=== PATIENT | male | born 1945 | race Caucasian/White ===

== ENCOUNTER 2017-07-23 16:36 | Emergency (ER) | payer MEDICARE ==
[2017-07-23] MEDS ORDERED: Aspirin Low Dose CHEW TAB* 81 MG PO ONE (17:32)
[2017-07-23 17:46] VITALS: BP 147/86
--- NOTE | 2017-07-29 13:56 | UC ---
Hoang Thompson SooYoung, scribed for JoshuaHilda MonacoDO on 07/23/17 at 1657 . Truncal Trauma HPI - HPI Summary HPI Summary: A 72 y/o M presents to [facility] with c/o constant chest pain s/p fall from 3 days ago. The pain worsened at approx noon today. Pt states he landed on the ground on the L-side of his chest, no pain immediate pain. Pain started 2 days later. Aggravating factors: movement, deep breaths. Alleviating factors: Alleve helped mildly, last taken at approx 1400. Pain rated as 8 out of 10, described as sharp with deep breaths and movement. Also constant dull pain 4/10. Associated sx: SOB only due to the CP with deep breaths. Denies n/v, dizziness, TAN, sore throat, ear ache. States feeling OK otherwise. - History Of Current Complaint Chief Complaint: UCTrauma Stated Complaint: FALL Time Seen by Provider: 07/23/17 16:48 Hx Obtained From: Patient, Medical Records Onset/Duration: Gradual Onset, Lasting Days, Still Present Onset Of Pain: Post Accident Severity Currently: Severe Pain Intensity: 8 Pain Scale Used: 0-10 Numeric Mechanism Of Injury: Fall From A Standing Position Aggravating Factor(s): Movement, Deep Breathing Alleviating factor(s): OTC Medication, Shallow Breathing Associated Signs And Symptoms: Positive: SOB, Chest Pain - Allergies/Home Medications Allergies/Adverse Reactions: Allergies Allergy/AdvReac Type Severity Reaction Status Date / Time Amoxicillin [From Augmentin] Allergy Unknown Verified 07/23/17 16:45 Reaction Details Clavulanic Acid Allergy Unknown Verified 07/23/17 16:45 [From Augmentin] Reaction Details Home Medications: Home Medications Aspirin [Aspirin 81 MG TAB] 81 mg PO 07/23/17 [History] Cyclosporine 0.05% OPHTH (NF) [Restasis 0.05% OPHTH] 0.05 % OP 07/23/17 [History ] Fluticasone NASAL * [Flonase *] 2 spray BOTH NARES DAILY 07/23/17 [History Confirmed 07/23/17] LevoCETirizine TAB (NF) [Xyzal TAB (NF)] 5 mg PO DAILY 07/23/17 [History Confirmed 07/23/17] Losartan TAB* [Cozaar TAB*] 25 mg PO DAILY 07/23/17 [History Confirmed 07/23/17] Metoprolol Succinate [Toprol Xl] 25 mg PO 07/23/17 [History] Mometasone/Formoter 200/5 MDI* [Dulera 200/5 MDI*] 2 puff INH BID 07/23/17 [ History Confirmed 07/23/17] Multiple Vitamin [Multivitamins] 1 cap PO 07/23/17 [History] Naproxen Sodium [Naproxen Sodium 220 mg cap] 220 mg PO 07/23/17 [History] [place]-3 Fatty Acids [Fish Oil] 1,000 mg PO 07/23/17 [History] Pravastatin (NF) [Pravachol (NF)] 40 mg PO 1700 07/23/17 [History Confirmed ] PMH/Surg Hx/FS Hx/Imm Hx Previously Healthy: No Cardiovascular History: Hypertension, Other Other Cardiovascular History: high cholesterol; peripheral vascular dz Neurological History: TIA, Other Other Neurological History: bilat carotid endarterectomies - Surgical History Surgical History: Yes Surgery Procedure, Year, and Place: sinusitis, knee implant, shoulder, foot - Family History Known Family History: Positive: Unknown - pt unsure, Cardiac Disease - possibly father, mother - Social History Occupation: Retired Lives: With Family Alcohol Use: None Substance Use Type: None Smoking Status (MU): Never Smoked Tobacco Review of Systems Constitutional: Negative Skin: Negative Eyes: Negative ENT: Negative Respiratory: Shortness Of Breath Cardiovascular: Negative, Chest Pain Gastrointestinal: Negative Genitourinary: Negative Motor: Negative Neurovascular: Negative Musculoskeletal: Negative Neurological: Negative Psychological: Negative All Other Systems Reviewed And Are Negative: Yes Physical Exam Triage Information Reviewed: Yes Appearance: Well-Appearing, No Pain Distress, Well-Nourished Vital Signs: Initial Vital Signs Temp 97.9 F 07/23/17 16:41 Pulse 81 07/23/17 16:41 Resp 18 07/23/17 16:41 BP 145/101 07/23/17 16:41 Pulse Ox 98 07/23/17 16:41 Vital Signs Reviewed: Yes Eyes: Positive: Conjunctiva Clear. Negative: Discharge ENT: Positive: Hearing grossly normal, TMs normal. Negative: Muffled/hoarse voice Neck: Positive: Supple, Nontender Respiratory: Positive: Lungs clear, Normal breath sounds, No respiratory distress, No accessory muscle use Cardiovascular: Positive: RRR, No Murmur Musculoskeletal: Positive: Other: - some tenderness with extensive palpation of costal-sternal border, none of which was reproducing the pain he was describing ; mild tremor Neurological: Positive: Alert, Muscle Tone Normal Psychological Exam: Normal Psychological: Positive: Age Appropriate Behavior Skin Exam: Normal, Other - warm, dry, nml color Diagnostics - EKG Cardiac Rate: NL - 75bpm Cardiac Rhythm: Sinus: Normal - LVH, Q-waves in avF, III; old inferior infarct Re-Evaluation - Re-Evaluation 1 Re-Evaluation Time: 17:25 Change: Unchanged Comment: Discussing EKG results with pt. Discussed with pt need for further evaluation of CP at ED. Pt voiced understanding, agrees, will go by ambulance. Pt also states he used to take a daily aspirin but stopped. Takes Alleve daily for shoulder pain. Truncal Trauma Course/Dx - Course Course Of Treatment: Pt medications reviewed this visit. Elevated BP but has current hypertension diagnosis. - Differential Dx/Diagnosis Differential Diagnosis/HQI/PQRI: Chest Wall Contusion, Rib Fracture Provider Diagnoses: 1. cp r/o acs. 2. chest wall truama. 3.Blood pressure in poor control - Physician Notification/Consults Discussed Patient Care With: Mary Allen - ED physician Time Discussed With Above Provider: 17:30 Instructed by Provider To: Transfer - send to [facility] Discharge - Discharge Plan Condition: Stable Disposition: TRANS HIGHER LVL OF CARE FAC Discharge Disposition Comment: [facility] by ambulance Referrals: [facility] PHYSICIAN REFERRAL [Outside] Additional Instructions: Return to Urgent Care if you have any new or worsening. You should establish with a private physician for follow-up care. If you are unable to get a timely appointment, or if you are worsening, call us or return for re-evaluation. An additional resource available to assist in finding the appropriate physician for your health care needs is the Physician Referral Center. You may contact them by calling [phone]. The documentation as recorded by the Hoang chapa SooYoung accurately reflects the service I personally performed and the decisions made by me, Hilda Lewis DO.
== END 2017-07-23 17:55 | disposition short-term general hospital (02) ==
LOC: UCEAST 16:36
DX: R07.89 Other chest pain (principal); S29.9XXA Unspecified injury of thorax, initial encounter; W19.XXXA Unspecified fall, initial encounter; Y93.9 Activity, unspecified; Y92.9 Unspecified place or not applicable; Z88.1 Allergy status to other antibiotic agents; I10 Essential (primary) hypertension; I73.9 Peripheral vascular disease, unspecified; E78.00 Pure hypercholesterolemia, unspecified; I38 Endocarditis, valve unspecified; Z86.73 Personal history of transient ischemic attack (TIA), and cerebral infarction without residual deficits
CPT/HCPCS: 93005; 99213; A9270-GY; G0463

== ENCOUNTER 2017-07-23 18:23 | Emergency (ER) | payer MEDICARE ==
[2017-07-23] MEDS ORDERED: NS 0.9% 1000 ML* 1,000 ML IV ONE (18:32)
--- NOTE | 2017-07-23 19:02 | RAD ---
HISTORY: Chest pain COMPARISONS: August 19, 2008 VIEWS:1: Single frontal portable view of the chest at 6:48 PM FINDINGS: LINES AND TUBES: None. CARDIOMEDIASTINAL SILHOUETTE: The cardiomediastinal silhouette is normal for portable technique. PLEURA: The costophrenic angles are sharp. No pleural abnormalities are noted. LUNG PARENCHYMA: The lungs are clear. ABDOMEN: The upper abdomen is clear. There is no subphrenic gas. BONES AND SOFT TISSUES: No bone or soft tissue abnormalities are noted. IMPRESSION: NO ACTIVE CARDIOPULMONARY DISEASE.
[2017-07-23 19:10] LABS: Hematocrit 41 % (42-52); Mean Corpuscular HGB Conc 34 g/dl (31-36); Mean Corpuscular Hemoglobin 31 pg (27-31); Mean Corpuscular Volume 91 fL (80-94); Mean Platelet Volume 8 um3 (7.4-10.4); Red Blood Count 4.53 10^6/ul (4.0-5.4); Red Cell Distribution Width 14 % (10.5-15); White Blood Count 8.6 10^3/ul (3.5-10.8)
[2017-07-23 19:25] LABS: Albumin 4.3 g/dL (3.2-5.2); BUN/Creatinine Ratio 29.8 (8-20); Calcium 9.3 mg/dL (8.6-10.3); EGFR African American 114.9 (>60); EGFR Non-African American 89.3 (>60); Globulin 2.2 g/dL (2-4); Magnesium 1.9 mg/dL (1.9-2.7); Total Bilirubin 0.6 mg/dL (0.2-1.0); Total Protein 6.5 g/dL (6.4-8.9)
[2017-07-23 19:56] LABS: TSH (Thyroid Stimulating Horm) 1.72 mcIU/mL (0.34-5.60)
[2017-07-23] MEDS ORDERED: Iohexol 350* (CONTRAST) 500 ML MDV IV ONE (19:59)
--- NOTE | 2017-07-23 21:01 | RAD ---
HISTORY: Chest pain radiating to back, subacute trauma COMPARISONS: None TECHNIQUE: Multiple contiguous axial CT scans of the chest were obtained after the administration of nonionic intravenous contrast, timed to the pulmonary arterial phase of contrast enhancement.. Coronal and sagittal multiplanar reformations are also submitted for review. FINDINGS: Evaluation somewhat limited by suboptimal contrast opacification. Attenuation of the aorta and main pulmonary artery is between 220 mL of sodium its. This is considered borderline but diagnostic quality. NECK AND THYROID: The lower neck and thyroid are unremarkable. CHEST WALL: There is no lower cervical, axillary, or supraclavicular lymphadenopathy by size criteria. There is minimal bilateral gynecomastia. HEART AND PERICARDIUM: The heart is unremarkable. AORTA AND PULMONARY VASCULATURE: There is no pulmonary arterial filling defect to suggest pulmonary embolism. There is no linear filling defect within the aorta to suggest aortic dissection. There is mild calcified atherosclerotic plaque of the aorta. MEDIASTINUM: There are subcentimeter short axis mediastinal lymph nodes without lymphadenopathy by size criteria. RAUL: There are subcentimeter short axis hilar lymph nodes without lymphadenopathy by size criteria. AIRWAY AND ESOPHAGUS: The airway is unremarkable, without endobronchial filling defect. The esophagus is grossly normal. LUNG PARENCHYMA: There is minimal dependent atelectasis of the lung bases. PLEURA: No pleural abnormalities are noted. UPPER ABDOMEN: The upper abdomen is unremarkable. BONES AND SOFT TISSUES: Mild degenerative changes are noted OTHER: None. IMPRESSION: 1. NO PULMONARY ARTERIAL FILLING DEFECT TO SUGGEST PULMONARY EMBOLISM. 2. NO AORTIC INTIMAL FLAP TO SUGGEST DISSECTION. NO ANEURYSMAL DILATATION.
--- NOTE | 2017-07-23 21:26 | ED ---
Sparkle Thompson Edward, scribed for Mary Allen MD on 07/23/17 at 1838 . HPI Chest Pain - HPI Summary HPI Summary: 72 y/o male presents to ED c/o sudden onset CP located in the L lateral region starting at around noon today. The patient was waxing his car when the pain started. The pain is aggravated with deep breaths, coughing, and sitting up. There is a region tender to the touch at one spot in the L lateral region. The pain radiates to the back. The pt fell at 07/21/17 at 08:00 am. During the fall , the pt's right foot caught and the pt fell on his L shoulder and L knee onto gravel. PMHx HTN, HLD. No previous RI's. - History of Current Complaint Time Seen by Provider: 07/23/17 18:32 Hx Obtained From: Patient, Family/Teletype Adjuster - present in room Onset/Duration: Started Hours Ago - Noon today Time of Onset: 12:00 Timing: Constant Initial Severity: Moderate Current Severity: Moderate Pain Intensity: 8 Pain Scale Used: 0-10 Numeric Chest Pain Location: Left Lateral Chest Pain Radiates: Yes Chest Pain Radiates To:: Back Character: Dull/Aching Aggravating Factor(s): Position - Sitting up, Deep Breaths, Other: - Tender to touch at one spot, cough Alleviating Factor(s): Nothing Associated Signs and Symptoms: Positive: Chest Pain, Back Pain. Negative: Diaphoresis, Nausea, Abdominal Pain, Vomiting - Risk Factors TAD Risk Factors: Hypertension AMI/ACS Risk Factors: Hypertension, Dyslipidemia - Allergy/Home Medications Allergies/Adverse Reactions: Allergies Allergy/AdvReac Type Severity Reaction Status Date / Time Amoxicillin [From Augmentin] Allergy Unknown Verified 07/23/17 16:45 Reaction Details Clavulanic Acid Allergy Unknown Verified 07/23/17 16:45 [From Augmentin] Reaction Details PMH/Surg Hx/FS Hx/Imm Hx Previously Healthy: No Endocrine/Hematology History: Reports: Other Endocrine/Hematological Disorders - HLD Cardiovascular History: Reports: Hx Hypercholesterolemia, Hx Hypertension - Surgical History Surgery Procedure, Year, and Place: sinusitis, knee implant, shoulder, foot Infectious Disease History: Denies: Traveled Outside the [place] in Last 30 Days - Family History Known Family History: Positive: Cardiac Disease - Father - CHF. Mother- heart disease, Respiratory Disease - Father - tuberculosis, Other - Mother - stroke. Father, brother and sister of muscular dystrophy - Social History Lives: With Family Alcohol Use: None Hx Substance Use: No Substance Use Type: Reports: None Hx Tobacco Use: No Smoking Status (MU): Never Smoked Tobacco Review of Systems Constitutional: Negative Negative: Skin Diaphoresis Eyes: Negative ENT: Negative Positive: Chest Pain Respiratory: Negative Gastrointestinal: Negative Negative: Abdominal Pain, Vomiting, Nausea Genitourinary: Negative Musculoskeletal: Negative Skin: Negative Neurological: Negative Psychological: Normal All Other Systems Reviewed And Are Negative: Yes Physical Exam Triage Information Reviewed: Yes Vital Signs On Initial Exam: Initial Vitals Temp Pulse Resp BP Pulse Ox 99.4 F 77 18 157/77 96 07/23/17 18:42 07/23/17 18:42 07/23/17 18:42 07/23/17 18:42 07/23/17 18:42 Vital Signs Reviewed: Yes Appearance: Positive: Well-Appearing, Well-Nourished, Pain Distress Skin: Positive: Warm, Skin Color Reflects Adequate Perfusion, Other - No bruising to left ant chest Head/Face: Positive: Normal Head/Face Inspection Eyes: Positive: Conjunctiva Clear ENT: Positive: Normal ENT inspection Neck: Positive: Supple Respiratory/Lung Sounds: Positive: Clear to Auscultation, Breath Sounds Present. Negative: Other - No crepitus, no wheezing, no bony tenderness Cardiovascular: Positive: RRR, Pulses are Symmetrical in both Upper and Lower Extremities, Other - Brisk capillary refill Abdomen Description: Positive: Nontender, No Organomegaly, Soft Bowel Sounds: Positive: Present Musculoskeletal: Positive: Pain @ - Point tenderness @ 3rd intercostal space. Negative: Other - No bony tenderness of ribs, no calf tenderness, no edema Neurological: Positive: Sensory/Motor Intact, Alert, Oriented to Person Place, Time, Facial Symmetry, Speech Normal Psychiatric: Positive: Normal Diagnostics - Vital Signs Vital Signs Temp Pulse Resp BP Pulse Ox 07/23/17 20:00 71 22 95 07/23/17 19:30 75 23 134/82 95 07/23/17 19:13 77 24 139/78 95 07/23/17 19:00 80 20 146/103 96 07/23/17 18:44 76 20 96 07/23/17 18:42 99.4 F 77 18 157/77 96 - Laboratory Lab Results: Lab Results 07/23/17 07/23/17 07/23/17 Range/Units 19:00 19:00 19:00 WBC 8.6 (3.5-10.8) 10^3/ul RBC 4.53 (4.0-5.4) 10^6/ul Hgb 14.0 (14.0-18.0) g/dl Hct 41 L (42-52) % MCV 91 (80-94) fL MCH 31 (27-31) pg MCHC 34 (31-36) g/dl RDW 14 (10.5-15) % Plt Count 112 L (150-450) 10^3/ul MPV 8 (7.4-10.4) um3 Neut % (Auto) 43.2 (38-83) % Lymph % (Auto) 47.4 H (25-47) % Ber[place] % (Auto) 8.2 (1-9) % Eos % (Auto) 0.7 (0-6) % Baso % (Auto) 0.5 (0-2) % Absolute Neuts (auto) 3.7 (1.5-7.7) 10^3/ul Absolute Lymphs (auto) 4.1 (1.0-4.8) 10^3/ul Absolute Monos (auto) 0.7 (0-0.8) 10^3/ul Absolute Eos (auto) 0.1 (0-0.6) 10^3/ul Absolute Basos (auto) 0 (0-0.2) 10^3/ul Absolute Nucleated RBC 0.01 10^3/ul Nucleated RBC % 0.1 INR (Anticoag Therapy) 0.94 (0.89-1.11) APTT 26.8 (26.0-36.3) seconds D-Dimer, Quantitative < 200 (Less Than 230) ng/mL Sodium 139 (133-145) mmol/L Potassium 4.0 (3.5-5.0) mmol/L Chloride 106 (101-111) mmol/L Carbon Dioxide 28 (22-32) mmol/L Anion Gap 5 (2-11) mmol/L BUN 25 H (6-24) mg/dL Creatinine 0.84 (0.67-1.17) mg/dL Est GFR ( Amer) 114.9 (>60) Est GFR (Non-Af Amer) 89.3 (>60) BUN/Creatinine Ratio 29.8 H (8-20) Glucose 101 H (70-100) mg/dL Lactic Acid (0.5-2.0) mmol/L Calcium 9.3 (8.6-10.3) mg/dL Magnesium 1.9 (1.9-2.7) mg/dL Total Bilirubin 0.60 (0.2-1.0) mg/dL AST 19 (13-39) U/L ALT 14 (7-52) U/L Alkaline Phosphatase 42 (34-104) U/L Total Creatine Kinase 94 (10-223) U/L CK-MB (CK-2) 3.0 (0.6-6.3) ng/mL Troponin I 0.00 (<0.04) ng/mL B-Natriuretic Peptide ( - 100) pg/mL Total Protein 6.5 (6.4-8.9) g/dL Albumin 4.3 (3.2-5.2) g/dL Globulin 2.2 (2-4) g/dL Albumin/Globulin Ratio 2.0 (1-3) TSH 1.72 (0.34-5.60) mcIU/mL 07/23/17 07/23/17 Range/Units 19:00 19:00 WBC (3.5-10.8) 10^3/ul RBC (4.0-5.4) 10^6/ul Hgb (14.0-18.0) g/dl Hct (42-52) % MCV (80-94) fL MCH (27-31) pg MCHC (31-36) g/dl RDW (10.5-15) % Plt Count (150-450) 10^3/ul MPV (7.4-10.4) um3 Neut % (Auto) (38-83) % Lymph % (Auto) (25-47) % Berks % (Auto) (1-9) % Eos % (Auto) (0-6) % Baso % (Auto) (0-2) % Absolute Neuts (auto) (1.5-7.7) 10^3/ul Absolute Lymphs (auto) (1.0-4.8) 10^3/ul Absolute Monos (auto) (0-0.8) 10^3/ul Absolute Eos (auto) (0-0.6) 10^3/ul Absolute Basos (auto) (0-0.2) 10^3/ul Absolute Nucleated RBC 10^3/ul Nucleated RBC % INR (Anticoag Therapy) (0.89-1.11) APTT (26.0-36.3) seconds D-Dimer, Quantitative (Less Than 230) ng/mL Sodium (133-145) mmol/L Potassium (3.5-5.0) mmol/L Chloride (101-111) mmol/L Carbon Dioxide (22-32) mmol/L Anion Gap (2-11) mmol/L BUN (6-24) mg/dL Creatinine (0.67-1.17) mg/dL Est GFR ( Amer) (>60) Est GFR (Non-Af Amer) (>60) BUN/Creatinine Ratio (8-20) Glucose (70-100) mg/dL Lactic Acid 0.6 (0.5-2.0) mmol/L Calcium (8.6-10.3) mg/dL Magnesium (1.9-2.7) mg/dL Total Bilirubin (0.2-1.0) mg/dL AST (13-39) U/L ALT (7-52) U/L Alkaline Phosphatase (34-104) U/L Total Creatine Kinase (10-223) U/L CK-MB (CK-2) (0.6-6.3) ng/mL Troponin I (<0.04) ng/mL B-Natriuretic Peptide 44 ( - 100) pg/mL Total Protein (6.4-8.9) g/dL Albumin (3.2-5.2) g/dL Globulin (2-4) g/dL Albumin/Globulin Ratio (1-3) TSH (0.34-5.60) mcIU/mL Result Diagrams: 07/23/17 19:00 07/23/17 19:00 Lab Statement: Any lab studies that have been ordered have been reviewed, and results considered in the medical decision making process. - Radiology CXR Xray Interpretation: No Acute Changes - No active cardiopulmonary disease Radiology Interpretation Completed By: Radiologist - CT CHEST/THORAX CTA CT Interpretation: No Acute Changes - 1. NO PULMONARY ARTERIAL FILLING DEFECT TO SUGGEST PULMONARY EMBOLISM. 2. NO AORTIC INTIMAL FLAP TO SUGGEST DISSECTION. NO ANEURYSMAL DILATATION. ED PHYSICIAN AGREEABLE CT Interpretation Completed By: Radiologist - Additional Comments Diagnostic Additional Comments: EKG 19:07 - SR @ 78 BPM. Normal AV, IV and QTc. L axis -30. 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 Non-specific T wave changes. No significant change from EKG's @ 07/23/17 - 17:06 and @ 03/14/2007. Re-Evaluation - Re-Evaluation 1 Re-Evaluation Time: 21:34 Comment: Discuss results, plan of care Chest Pain Course/Dx - Course Assessment/Plan: 72 y/o male presents to ED c/o sudden onset CP located in the L lateral region starting at around noon today. The patient was waxing his car when the pain started. The pain is aggravated with deep breaths, coughing, and sitting up. There is a region tender to the touch at one spot in the L lateral region. The pain radiates to the back. The pt fell at 07/21/17 at 08:00 am. During the fall, the pt's right foot caught and the pt fell on his L shoulder and L knee onto gravel. PMHx HTN, HLD. No previous RI's. CXR shows no active cardiopulmonary disease. EKG 19:07 - SR @ 78 BPM. Normal AV, IV and QTc. L axis -30. 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 Non-specific T wave changes. No significant change from EKG's @ 07/23/17 - 17:06 and @ 2006. CHEST/THORAX CTA SHOWS 1. NO PULMONARY ARTERIAL FILLING DEFECT TO SUGGEST PULMONARY EMBOLISM. 2. NO AORTIC INTIMAL FLAP TO SUGGEST DISSECTION. NO ANEURYSMAL DILATATION. Troponin 7 hr after origination of pain was 0.00. High blood BP noted. Pt will be d/c home. - Diagnoses Provider Diagnoses: Chest wall pain, Hypertension, poor control Discharge - Discharge Plan Condition: Stable Disposition: HOME Patient Education Materials: Chest Pain (ED), Chest Wall Pain (ED) Referrals: Destin Fuchs MD [Primary Care Provider] - 2 Days Additional Instructions: F/U WITH PCP IN 2 DAYS. YOU WERE GIVEN YOUR CHEST XRAY, CT CHEST/THORAX and LAB RESULTS. YOUR BLOOD PRESSURE IS ELEVATED AND NOTED. PLEASE F/U WITH YOUR PCP FOR BP RECHECK WITHIN 1 MONTH. RETURN TO THE ED FOR NEW OR WORSENING SYMPTOMS The documentation as recorded by the Sparkle chapa Edward accurately reflects the service I personally performed and the decisions made by me, Mary Allen MD.
[2017-07-23 21:53] VITALS: BP 143/67
== END 2017-07-23 21:52 | disposition home or self-care (01) ==
LOC: ED 18:23
DX: R07.89 Other chest pain (principal); I10 Essential (primary) hypertension; E78.5 Hyperlipidemia, unspecified; E78.00 Pure hypercholesterolemia, unspecified; I51.7 Cardiomegaly; Z88.1 Allergy status to other antibiotic agents
CPT/HCPCS: 36415; 71010; 71275; 80053; 82550; 82553; 83605; 83735; 83880; 84443; 84484; 85025; 85379; 85610; 85730; 93005; 96360; 96361; 99283; Q9967

== ENCOUNTER 2019-06-17 14:00 | Emergency (ER) | payer MEDICARE ==
[2019-06-17] MEDS ORDERED: Lidocaine 2% w/ EPI 1:200,000* 20 ML VIAL INJ ONE (15:52)
--- NOTE | 2019-06-17 15:54 | ED ---
Lower Extremity - HPI Summary HPI Summary: 73-year-old male presents with potential foreign body in left foot. He states that 3 days ago he got a thorn to his foot. He states that he removed part of it about a week ago. He states that he has been having increasing pain into the foot. Denies any fevers chills. No rash. He states that it is more pain when he ambulates. He states it feels like something is stuck in there. Denies any other injury. - History of Current Complaint Chief Complaint: EDExtremityLower Stated Complaint: THORN IN LEFT FOOT FOR TWO WEEKS PER PT Time Seen by Provider: 06/17/19 15:32 Pain Intensity: 0 - Allergies/Home Medications Allergies/Adverse Reactions: Allergies Allergy/AdvReac Type Severity Reaction Status Date / Time amoxicillin [From Augmentin] Allergy Unknown Verified 06/17/19 14:34 Reaction Details clavulanic acid Allergy Unknown Verified 06/17/19 14:34 [From Augmentin] Reaction Details PMH/Surg Hx/FS Hx/Imm Hx Endocrine/Hematology History: Reports: Other Endocrine/Hematological Disorders - HLD Denies: Hx Diabetes Cardiovascular History: Reports: Hx Hypercholesterolemia, Hx Hypertension - Surgical History Surgery Procedure, Year, and Place: sinusitis, knee implant, shoulder, foot Infectious Disease History: No Infectious Disease History: Denies: Traveled Outside the [place] in Last 30 Days - Family History Known Family History: Positive: Cardiac Disease - Father - CHF. Mother- heart disease, Respiratory Disease - Father - tuberculosis, Other - Mother - stroke. Father, brother and sister of muscular dystrophy - Social History Alcohol Use: None Hx Substance Use: No Substance Use Type: Reports: None Hx Tobacco Use: No Smoking Status (MU): Never Smoked Tobacco Review of Systems Negative: Fever Negative: Chest Pain Negative: Shortness Of Breath Positive: Other - potential foreign body left foot All Other Systems Reviewed And Are Negative: Yes Physical Exam Triage Information Reviewed: Yes Vital Signs On Initial Exam: Initial Vitals Temp Pulse Resp BP Pulse Ox 98.4 F 75 18 131/90 97 06/17/19 14:07 06/17/19 14:07 06/17/19 14:07 06/17/19 14:07 06/17/19 14:07 Vital Signs Reviewed: Yes Appearance: Positive: Well-Appearing Skin: Positive: Warm, Dry, Other - callus on left foot, unable to palpate foreign body Head/Face: Positive: Normal Head/Face Inspection Eyes: Positive: Normal, Conjunctiva Clear ENT: Positive: Pharynx normal Respiratory/Lung Sounds: Positive: Clear to Auscultation, Breath Sounds Present Cardiovascular: Positive: Normal, RRR Musculoskeletal: Positive: Strength/ROM Intact - left foot, Other - good pulses Neurological: Positive: Normal Psychiatric: Positive: Normal Procedures - Incision and Drainage left foot Site: left foot Instrument(s): Scalpel, Other - no foreign body found, placed 1 suture Diagnostics - Vital Signs Vital Signs Temp Pulse Resp BP Pulse Ox 06/17/19 14:07 98.4 F 75 18 131/90 97 - Laboratory Lab Statement: Any lab studies that have been ordered have been reviewed, and results considered in the medical decision making process. - Radiology foot Radiology Interpretation Completed By: Radiologist Summary of Radiographic Findings: IMPRESSION: No fracture is identified. No radiopaque foreign body is identified. Lower Extremity Course/Dx - Course Course Of Treatment: 73-year-old male presents with potential foreign body in left foot. He states that 3 days ago he got a thorn to his foot. He states that he removed part of it about a week ago. He states that he has been having increasing pain into the foot. Denies any fevers chills. No rash. He states that it is more pain when he ambulates. He states it feels like something is stuck in there. Denies any other injury. On exam has callus to left foot. No evidence of abscess or erythema. X-ray shows no foreign body. performed bedside ultrasound and potential saw a small foreign body. Attempted incision to try to find the foreign body and was unable to do so. placed one suture to close laceration created. Will place patient on doxycycline. Told to do warm soaks of area. Told to follow up with podiatry. Patient understands agrees plan. - Diagnoses Differential Diagnosis/HQI/PQRI: Positive: Cellulitis, Foreign Body, Other - abscess Provider Diagnoses: Foreign body in left foot Discharge - Sign-Out/Discharge Documenting (check all that apply): Patient Departure Patient Received Moderate/Deep Sedation with Procedure: No - Discharge Plan Condition: Good Disposition: HOME Prescriptions: DOXYcycline CAP(*) [DOXYcycline 100MG CAP(*)] 100 mg PO BID #13 cap Patient Education Materials: Soft Tissue Foreign Body (ED) Referrals: Destin Fuchs MD [Primary Care Provider] - Additional Instructions: do warm soaks twice a day take doxycycline twice a day for 7 days Follow up with podiatry Suture removal in 8-10 days Return to ED if develop any new or worsening symptoms - Billing Disposition and Condition Condition: GOOD Disposition: Home
[2019-06-17] MEDS ORDERED: DOXYcycline CAP(*) 100 MG PO ONE (16:33)
[2019-06-17 16:54] VITALS: BP 129/87
== END 2019-06-17 16:45 | disposition home or self-care (01) ==
LOC: ED 14:00
DX: S90.852A Superficial foreign body, left foot, initial encounter (principal); X58.XXXA Exposure to other specified factors, initial encounter; Y92.9 Unspecified place or not applicable; Z88.1 Allergy status to other antibiotic agents; E78.5 Hyperlipidemia, unspecified; E78.00 Pure hypercholesterolemia, unspecified; I10 Essential (primary) hypertension
CPT/HCPCS: 10120; 96372; 99282; A9270-GY

== ENCOUNTER 2019-08-30 12:57 | Emergency (ER) | payer MEDICARE ==
--- NOTE | 2019-08-30 13:26 | ED ---
Lower Extremity - HPI Summary HPI Summary: This pt is a 74 y/o male presenting to [facility] c/o left foot pain and swelling s/ p dropping a piece of angle iron onto his left foot 10 days ago. Pt reports he was taking an angle iron and moving it when he dropped it on left foot. He notes his swelling initially was worse than today and states swelling has decreased. Pt notes some limited ROM of his left foot when bending. His foot pain is aggravated with ambulation. Pt is able to bear weight on left foot but is painful. Denies any PMHx. Pt is a former smoker but admits to occasional alcohol use. - History of Current Complaint Chief Complaint: EDExtremityLower Stated Complaint: LT FOOT INJ PER PT Time Seen by Provider: 08/30/19 13:19 Hx Obtained From: Patient Mechanism Of Injury: Blunt Trauma Onset of Pain: Days Onset/Duration: Days Severity Currently: Severe Pain Intensity: 8 Pain Scale Used: 0-10 Numeric Timing: Lasting Days Location: Is Discrete @ - left foot Associated Signs And Symptoms: Positive: Swelling, Redness. Negative: Fever, Knee Pain Aggravating Factor(s): Ambulation Alleviating Factor(s): Rest Able to Bear Weight: Yes - Allergies/Home Medications Allergies/Adverse Reactions: Allergies Allergy/AdvReac Type Severity Reaction Status Date / Time amoxicillin [From Augmentin] Allergy Unknown Verified 06/17/19 14:34 Reaction Details clavulanic acid Allergy Unknown Verified 06/17/19 14:34 [From Augmentin] Reaction Details PMH/Surg Hx/FS Hx/Imm Hx Endocrine/Hematology History: Reports: Other Endocrine/Hematological Disorders - HLD Denies: Hx Diabetes Cardiovascular History: Reports: Hx Hypercholesterolemia, Hx Hypertension - Surgical History Surgical History: Yes Surgery Procedure, Year, and Place: sinusitis, knee implant, shoulder, foot Infectious Disease History: No Infectious Disease History: Denies: Traveled Outside the [place] in Last 30 Days - Family History Known Family History: Positive: Cardiac Disease - Father - CHF. Mother- heart disease, Respiratory Disease - Father - tuberculosis, Other - Mother - stroke. Father, brother and sister of muscular dystrophy - Social History Alcohol Use: None Hx Substance Use: No Substance Use Type: Reports: None Hx Tobacco Use: No Smoking Status (MU): Never Smoked Tobacco Review of Systems Negative: Fever, Chills ENT: Negative Cardiovascular: Negative Respiratory: Negative Musculoskeletal: Other - POSITIVE: left foot pain Skin: Other - POSITIVE: left foot swelling and redness All Other Systems Reviewed And Are Negative: Yes Physical Exam - Summary Physical Exam Summary: VITAL SIGNS: Reviewed. GENERAL: Patient is a well-developed and nourished male who is lying comfortable in the stretcher. Patient is not in any acute respiratory distress. HEAD AND FACE: No signs of trauma. No ecchymosis, hematomas or skull depressions. No sinus tenderness. EYES: PERRLA, EOMI x 2, No injected conjunctiva, no nystagmus. EARS: Hearing grossly intact. Ear canals and tympanic membranes are within normal limits. MOUTH: Oropharynx within normal limits. NECK: Supple, trachea is midline, no adenopathy, no JVD, no carotid bruit, no c- spine tenderness, neck with full ROM. CHEST: Symmetric, no tenderness at palpation. LUNGS: Clear to auscultation bilaterally. No wheezing or crackles. CVS: Regular rate and rhythm, S1 and S2 present, no murmurs or gallops appreciated. ABDOMEN: Soft, non-tender. No signs of distention. No rebound, no guarding, and no masses palpated. Bowel sounds are normal. EXTREMITIES: Left lower extremity: redness on the dorsal aspect extending to the lateral aspect of the left foot with some bruising in the lateral aspect of the foot. NEURO: Alert and oriented x 3. No acute neurological deficits. Speech is normal and follows commands. SKIN: Dry and warm. Triage Information Reviewed: Yes Vital Signs On Initial Exam: Initial Vitals Temp Pulse Resp BP Pulse Ox 97.7 F 75 16 156/78 96 08/30/19 13:00 08/30/19 13:00 08/30/19 13:00 08/30/19 13:00 08/30/19 13:00 Vital Signs Reviewed: Yes Procedures - Sedation Patient Received Moderate/Deep Sedation with Procedure: No Diagnostics - Vital Signs Vital Signs Temp Pulse Resp BP Pulse Ox 08/30/19 13:00 97.7 F 75 16 156/78 96 - Laboratory Lab Statement: Any lab studies that have been ordered have been reviewed, and results considered in the medical decision making process. - Radiology Left foot XR Radiology Interpretation Completed By: Radiologist Summary of Radiographic Findings: IMPRESSION: Nondisplaced fractures of the fourth and fifth proximal phalanges. Dr. Dubon has reviewed this report. Lower Extremity Course/Dx - Course Assessment/Plan: This pt is a 74 y/o male presenting to [facility] c/o left foot pain and swelling s/p dropping a piece of angle iron onto his left foot 10 days ago. Pt reports he was taking an able iron and moving it when he dropped it on the left foot. He notes his swelling initially was worse than today and states swelling has decreased. Pt notes some limited ROM of his left foot when bending. His foot pain is aggravated with ambulation. Pt is able to bear weight on left foot but is painful. Denies any PMHx. Pt is a former smoker but admits to occasional alcohol use. X-ray of the left foot impression: Nondisplaced fractures of the fourth and fifth proximal phalanges. I offered the patient a posterior splint however the patient declined. He prefers a CAM boot. Therefore the patient will be discharged home with follow-up from his primary care physician and orthopedics. I discussed all the findings and test results with the patient. Patient was instructed to return to the emergency room immediately if any of the symptoms return or worsen. Plan of care was discussed with the patient and he understands and agrees. All questions were answered at patient satisfaction. There were no further complaints or concerns. Lung exam before discharge: CTA B/L. Good air exchange. No wheezing or crackles heard. CVS: S1 and S2 present. No murmurs appreciated. Patient is alert and oriented x 3. Patient is hemodynamically stable. Patient will be discharged home with follow up from his PCP in the next 2-3 days. - Diagnoses Provider Diagnoses: Phalanges fracture, foot Discharge ED - Sign-Out/Discharge Documenting (check all that apply): Patient Departure - Discharge home - Discharge Plan Condition: Stable Disposition: HOME Patient Education Materials: Toe Fracture (ED) Referrals: Antony Rosado MD [Medical Doctor] - Destin Fuchs MD [Primary Care Provider] - Additional Instructions: Call orthopedist, Dr. Rosado, and make an appointment for follow up. Also please follow up with your primary care provider. RETURN TO THE ED FOR ANY WORSENING OR NEW SYMPTOMS - Billing Disposition and Condition Condition: STABLE Disposition: Home - Attestation Statements Document Initiated by Scribe: Yes Documenting Scribe: Jael Lambert Provider For Whom Scribe is Documenting (Include Credential): Jose Luis Dubon MD Scribe Attestation: I, Jael Lambert, scribed for Jose Luis Dubon MD on 08/30/19 at 1827. Scribe Documentation Reviewed: Yes Provider Attestation: The documentation as recorded by the scribe, Jael Lambert accurately reflects the service I personally performed and the decisions made by me, Jose Luis Dubon MD Status of Scribe Document: Viewed
[2019-08-30 14:59] VITALS: BP 149/72
== END 2019-08-30 15:00 | disposition home or self-care (01) ==
LOC: ED 12:57
DX: R60.9 Edema, unspecified (principal); Z88.0 Allergy status to penicillin; E78.00 Pure hypercholesterolemia, unspecified; I10 Essential (primary) hypertension; S92.912A Unspecified fracture of left toe(s), initial encounter for closed fracture; W22.8XXA Striking against or struck by other objects, initial encounter; Y92.9 Unspecified place or not applicable; Z87.891 Personal history of nicotine dependence
CPT/HCPCS: 99281

== ENCOUNTER 2021-10-23 21:53 | Inpatient (IN) ==
[2021-10-23] MEDS ORDERED: methylPREDNISolone 125 mg 2 ML VIAL IV ONE (23:01)
[2021-10-23] MEDS ORDERED: Albuterol HFA INHALER 8 gm MDI INH ONE (23:01)
[2021-10-23] MEDS ORDERED: Magnesium Sulfate 2 gm BAG 2 GM/50 ML BAG IVPB ONE (23:01)
[2021-10-24 00:01] LABS: Hematocrit 37 % (42-52); Hemoglobin 12.4 g/dL (14.0-18.0); Mean Corpuscular HGB Conc 34 g/dL (31-36); Mean Corpuscular Hemoglobin 32 pg (27-31); Mean Corpuscular Volume 94 fL (80-94); Mean Platelet Volume 8.4 fL (7.4-10.4); Platelet Count 117 10^3/uL (150-450); Red Blood Count 3.95 10^6 /uL (4.18-5.48); Red Cell Distribution Width 14 % (10-15); White Blood Count 11.1 10^3/uL (3.5-10.8)
[2021-10-24 00:19] LABS: Albumin 3.6 g/dL (3.2-5.2); Albumin/Globulin Ratio 1.4 (1-3); C Reactive Protein 174.2 mg/L (<8.01); Globulin 2.5 g/dL (2-4); Potassium 3.7 mmol/L (3.5-5.0); Total Bilirubin 1.1 mg/dL (0.2-1.0); Total Protein 6.1 g/dL (6.4-8.9); eGFR CKD-EPI 90.9 (>60)
[2021-10-24 00:21] LABS: Troponin I 0.01 ng/mL (<0.03)
[2021-10-24 00:30] LABS: Rapid COVID-19 Molecular Undetected (Undetected)
[2021-10-24 00:33] LABS: ABS Lymphocytes 5.3 10^3/ul (1.0-4.8); ABS Monocytes 0.6 10^3/ul (0-0.8); ABS Neutrophils 5.2 10^3/ul (1.5-7.7); Eosinophil % 0.3 %
[2021-10-24] MEDS ORDERED: Iodixanol (CONTRAST) 320 MG/ML 100 ML SDV IV ONE (00:37)
[2021-10-24] MEDS ORDERED: Azithromycin 500 mg/250 ml NS 500 MG/250 ML BAG IVPB ONE (01:47)
[2021-10-24] MEDS ORDERED: cefTRIAXone 1 gm/50 mL NS BAG 1 GM/50 ML BAG IV ONE (01:47)
[2021-10-24] MEDS ORDERED: Albuterol HFA INHALER 8 gm MDI INH PRN (02:52)
[2021-10-24 06:48] LABS: Calcium 9.3 mg/dL (8.6-10.3); Magnesium 2.1 mg/dL (1.9-2.7)
[2021-10-24 06:54] LABS: eGFR CKD-EPI 88.9 (>60)
[2021-10-24] MEDS: Mometasone/Formoter 200/5 MDI INH SCH (07:40)
[2021-10-24] MEDS ORDERED: methylPREDNISolone SOD 40 mg/ml 1 ml VIAL IV SCH (09:00)
[2021-10-24] MEDS: methylPREDNISolone SOD 40 mg/ml 1 ml VIAL IV SCH ×3 (09:27→23:11)
[2021-10-24] MEDS: Fluticasone NASAL SPRAY 50MCG 16 gm SPRAY BTL INTRANASAL SCH (09:33)
[2021-10-24] MEDS: Enoxaparin 40 MG/0.4 ML SYR SUBCUT SCH (10:07)
[2021-10-24] MEDS: cefTRIAXone 1 gm/50 mL NS BAG 1 GM/50 ML BAG IVPB SCH (23:59)
[2021-10-25] MEDS: Mometasone/Formoter 200/5 MDI INH SCH ×4 (01:21→21:42)
[2021-10-25] MEDS ORDERED: Magnesium Hydroxide LIQ 30 ML UDC PO PRN (01:46)
[2021-10-25 06:34] LABS: Hematocrit 37 % (42-52); Hemoglobin 12.3 g/dL (14.0-18.0); Mean Corpuscular HGB Conc 33 g/dL (31-36); Mean Corpuscular Hemoglobin 31 pg (27-31); Mean Corpuscular Volume 94 fL (80-94); Mean Platelet Volume 8.4 fL (7.4-10.4); Platelet Count 150 10^3/uL (150-450); Red Blood Count 3.93 10^6 /uL (4.18-5.48); Red Cell Distribution Width 13 % (10-15); White Blood Count 13.7 10^3/uL (3.5-10.8)
[2021-10-25 06:37] LABS: ABS Lymphocytes 6.7 10^3/ul (1.0-4.8); ABS Monocytes 0.4 10^3/ul (0-0.8); ABS Neutrophils 6.6 10^3/ul (1.5-7.7); Lymphocyte % 48.7 %
[2021-10-25 07:01] LABS: Calcium 9.3 mg/dL (8.6-10.3); Potassium 3.8 mmol/L (3.5-5.0); eGFR CKD-EPI 92.4 (>60)
[2021-10-25] MEDS: Fluticasone NASAL SPRAY 50MCG 16 gm SPRAY BTL INTRANASAL SCH (09:22)
[2021-10-25] MEDS: methylPREDNISolone SOD 40 mg/ml 1 ml VIAL IV SCH (09:26)
[2021-10-25] MEDS: Enoxaparin 40 MG/0.4 ML SYR SUBCUT SCH (11:51)
[2021-10-25] MEDS ORDERED: methylPREDNISolone SOD 40 mg/ml 1 ml VIAL IV SCH (21:00)
[2021-10-25] MEDS: cefTRIAXone 1 gm/50 mL NS BAG 1 GM/50 ML BAG IVPB SCH (21:09)
[2021-10-26] MEDS: Mometasone/Formoter 200/5 MDI INH SCH (07:07)
[2021-10-26] MEDS: Enoxaparin 40 MG/0.4 ML SYR SUBCUT SCH (09:37)
[2021-10-26] MEDS: Fluticasone NASAL SPRAY 50MCG 16 gm SPRAY BTL INTRANASAL SCH (09:41)
[2021-10-26 11:22] LABS: Hematocrit 37 % (42-52); Hemoglobin 12.4 g/dL (14.0-18.0); Mean Corpuscular HGB Conc 34 g/dL (31-36); Mean Corpuscular Hemoglobin 32 pg (27-31); Mean Corpuscular Volume 95 fL (80-94); Mean Platelet Volume 8.5 fL (7.4-10.4); Platelet Count 155 10^3/uL (150-450); Red Blood Count 3.89 10^6 /uL (4.18-5.48); Red Cell Distribution Width 14 % (10-15)
[2021-10-26 11:42] LABS: C Reactive Protein 21.5 mg/L (<8.01); Calcium 9.2 mg/dL (8.6-10.3); Magnesium 1.9 mg/dL (1.9-2.7); Potassium 3.6 mmol/L (3.5-5.0); eGFR CKD-EPI 88.9 (>60)
[2021-10-26 11:49] LABS: ABS Lymphocytes 7.1 10^3/ul (1.0-4.8); ABS Monocytes 0.9 10^3/ul (0-0.8); ABS Neutrophils 4.9 10^3/ul (1.5-7.7)
[2021-10-26] MEDS ORDERED: methylPREDNISolone SOD 40 mg/ml 1 ml VIAL IV SCH ×2 (12:00→21:00)
[2021-10-26] MEDS ORDERED: Albuterol/Ipratropium NEB.SOL (2.5/0.5 MG) 3 ML NEB.SOLN INH SCH (15:00)
[2021-10-26 17:03] VITALS: BP 144/59
== END 2021-10-26 17:35 | disposition home or self-care (01) | DRG 193 ==
LOC: EDHOLD 21:53 → ED 21:53 → SUATTDRO 10-24 02:47 → MED 10-24 06:20 → MEDTELE 10-25 02:01
PROVIDERS: ADMIT Internal Medicine; ATTEND Hospitalist